=== PATIENT | male | born 1930 | race Caucasian/White ===

== ENCOUNTER 2016-09-12 13:05 | Inpatient (IN) | payer MEDICARE, OTHER ==
[2016-09-12] MEDS ORDERED: Sodium Chloride 0.9% 5 ML Syringe FLUSH PRN (13:23)
[2016-09-12] MEDS ORDERED: Acetaminophen 325 MG Tab PO ONE (13:23)
[2016-09-12] MEDS ORDERED: Sodium Chloride 0.9% 1,000 ML IV SCH (13:30)
--- NOTE | 2016-09-12 13:36 | EDM.PDOC ---
ED HPI GENERAL MEDICAL PROBLEM - General Chief Complaint: Fever Stated Complaint: FALL WITH HEAD INJURY Time Seen by Provider: 09/12/16 13:20 Source of Information: Reports: EMS, half-way records History Limitations: Reports: Altered mental status (OF CHRONIC NATURE) - History of Present Illness INITIAL COMMENTS - FREE TEXT/NARRATIVE: PER LONG-TERM AND EMS NOTES, PT FELL DURING NIGHT WHILE TRYING TO GET OUT OF WHEELCHAIR. MAY HAVE STRUCK BACK OF HEAD. PT SAID TO BE MORE CONFUSED THAN USUAL THIS AM AND PCP WAS CONTACTED. [facility] CONTACTED EMS FOR TRANSFER. [facility] NOTES SHOW HYPOTENSION YESTERDAY BUT DID NOT ADDRESSING IT. ALSO NO TREATMENT DOCUMENTED BY MT FOR FEVER OR URI SYMPTOMS THAT PT PRESENTED TO ER WITH. PT DSOMEWHAT CONFUSED BUT DENIES CP, GONZALEZ, NECK PAIN, OR ANY OTHER PAIN. Onset: gradual Location: Reports: head (possible head injury) Quality: Reports: Other (no pain elicited) Improves with: Reports: None Worsens with: Reports: None Associated Symptoms: Reports: confusion (of chronic nature), cough, fever/ chills. Denies: chest pain, nausea/vomiting - Related Data Allergies Allergy/AdvReac Type Severity Reaction Status Date / Time theophylline anhydrous Allergy Cannot Verified 04/28/16 19:36 [From [facility]] Remember Home Meds: Home Meds Aspirin [Halfprin] 81 mg PO DAILY 09/22/15 [History] Refresh Optive Sensitive 0.5-0.9% Ophth 1 drop EYEBOTH BID 09/24/15 [History] Bisacodyl [Dulcolax] 10 mg RECTAL DAILY PRN 12/28/15 [History] Docusate Sodium [Colace] 200 mg PO BEDTIME 12/28/15 [History] Magnesium Hydroxide [Milk of Magnesia] 30 ml PO ASDIRECTED PRN 12/28/15 [History ] Allopurinol [Zyloprim] 100 mg PO QAM 04/28/16 [History] Gabapentin [Neurontin] 100 mg PO BID 04/28/16 [History] Melatonin 9 mg PO BEDTIME 04/28/16 [History] Metolazone 2.5 mg PO ASDIRECTED 04/28/16 [History] Phenylephrine HCl [Sinus Decongestant] 10 mg PO Q4H PRN 04/28/16 [History] Polyethylene Glycol 3350 [Miralax] 17 gm PO QAM 04/28/16 [History] metFORMIN HCl [Metformin HCl ER] 500 mg PO QAM 04/28/16 [History] Albuterol [IMW: Ventolin HFA] 1 puff INH .TWICE DAILY PRN #18 gm 05/04/16 [Rx] Acetaminophen [Acetaminophen ER] 650 mg PO BID 09/12/16 [History] Albuterol Sulfate 1 ampule INH BID 09/12/16 [History] Furosemide [Lasix] 40 mg PO DAILY 09/12/16 [History] Levothyroxine Sodium [Synthroid] 137 mcg PO DAILY 09/12/16 [History] QUEtiapine Fumarate [Seroquel] 200 mg PO BID 09/12/16 [History] Past Medical History HEENT History: Reports: Cataract, Hard of hearing, Impaired vision Other HEENT History: READING GLASSES AND BILATERAL HEARING AIDS Cardiovascular History: Reports: Afib, High cholesterol, Hypertension Respiratory History: Reports: Asthma, COPD Gastrointestinal History: Reports: Chronic constipation Genitourinary History: Reports: BPH Musculoskeletal History: Reports: Gout, Osteoarthritis Neurological History: Reports: Parkinson's, TIA, Other (see below) Other Neuro History: Confusion Psychiatric History: Reports: Anxiety, Dementia, Depression, Hallucinations Endocrine/Metabolic History: Reports: Diabetes, type II, Hypothyroidism Oncologic (Cancer) History: Reports: Lymphoma - Past Surgical History HEENT Surgical History: Reports: Cataract surgery Cardiovascular Surgical History: Reports: None Respiratory Surgical History: Reports: None GI Surgical History: Reports: Colonoscopy, EGD, Hernia repair/other Male Surgical History: Reports: TURP-Transurethral resection of prostate Neurological Surgical History: Reports: Vertebroplasty Musculoskeletal Surgical History: Reports: Knee replacement Oncologic Surgical History: Reports: None Other Oncologic Surgeries/Procedures: 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 She also had renal failure. Sister with hypertension) Respiratory: Reports: None GI: Reports: None : Reports: Renal disease/insufficiency (Mother with renal failure--), Other (see below) OBGYN: Reports: None Musculoskeletal: Reports: Arthritis (Brother alive arthritis unknown) Neurological: Reports: None Psychiatric: Reports: None Endocrine/Metabolic: Reports: None Hematologic: Reports: None Immunologic: Reports: None Dermatologic: Reports: None Oncologic: Reports: Other (see below) (Father rectal cancer Brother still living prostate cancer) - Tobacco Use Smoking Status *Q: Never Smoker Years of Tobacco use: 45 Packs/Tins Daily: 2 Used Tobacco, but Quit: Yes Month Tobacco Last Used: 10 Second Hand Smoke Exposure: No - Caffeine Use Caffeine Use: Reports: None - Alcohol Use Days Per Week of Alcohol Use: 0 Number of Drinks Per Day: 5 Total Drinks Per Week: 0 - Recreational Drug Use Recreational Drug Use: No ED ROS GENERAL - Review of Systems Review Of Systems: ROS reveals no pertinent complaints other than HPI. Constitutional: Reports: fever HEENT: Reports: No symptoms Respiratory: Reports: cough Cardiovascular: Reports: No symptoms. Denies: Chest pain Endocrine: Reports: no symptoms GI/Abdominal: Reports: No symptoms : Reports: no symptoms Musculoskeletal: Reports: no symptoms Skin: Reports: no symptoms Neurological: Reports: confusion (OF CHRONIC NATURE) Psychiatric: Reports: Confusion Hematologic/Lymphatic: Reports: no symptoms Immunologic: Reports: no symptoms ED EXAM, GENERAL - Physical Exam Exam: See Below Exam Limited By: Altered mental status (OF CHRONIC NATURE) General Appearance: alert, WD/WN, no apparent distress Eye Exam: bilateral eye: normal inspection Ears: normal external exam, normal canal, normal TMs Nose: normal inspection, normal mucosa, no blood Throat/Mouth: Normal inspection, Normal lips, Normal oropharynx, No airway compromise Head: atraumatic, normocephalic, other (NO SIGNS OF TRAUMA) Respiratory/Chest: no respiratory distress, rhonchi (APICALLY) Cardiovascular: regular rate, rhythm, no murmur GI/Abdominal: normal bowel sounds, soft, non tender, no distention, no abnormal bruit, no mass Back Exam: normal inspection. No: CVA tenderness (L), CVA tenderness (R) Extremities: normal inspection, normal range of motion, non-tender, no pedal edema Neurological: confused, disoriented Psychiatric: normal affect, normal mood Skin Exam: Warm, Dry, Intact, Normal color, No rash Lymphatic: no adenopathy Course - Orders/Labs/Meds Orders: Active Orders 24 hr Category Date Time Status Peripheral IV Care [RC] . DIRECTED Care 09/12/16 13:25 Ordered Chest 1V Frontal [CR] Stat Exams 09/12/16 13:23 Ordered CBC WITH AUTO DIFF [HEME] Stat Lab 09/12/16 13:23 Ordered COMPREHENSIVE METABOLIC PN,CMP [CHEM] Stat Lab 09/12/16 13:23 Ordered CULTURE URINE [RM] Stat Lab 09/12/16 13:23 Uncollected INFLUENZA A+B AG SCREEN [RM] Stat Lab 09/12/16 13:23 Uncollected UA W/MICROSCOPIC [URIN] Stat Lab 09/12/16 13:23 Uncollected Acetaminophen [Tylenol] Med 09/12/16 13:23 Once 650 mg PO NOW ONE Sodium Chloride 0.9% [Normal Saline] 1,000 ml Med 09/12/16 13:30 Ordered IV .BOLUS Sodium Chloride 0.9% [Syrex Flush] Med 09/12/16 13:23 Ordered 5 ml FLUSH Q8HR PRN Peripheral IV Insertion Adult [OM.PC] Urgent Oth 09/12/16 13:23 Ordered - Re-Assessments/Exams Free Text/Narrative Re-Assessment/Exam: 09/12/16 15:19 PT AFEBRILE, NONTOXIC APPEARING, VSS. DISCUSSED CASE WITH NANCIE CRUZ FROM [facility]. WILL ADMIT AND FOLLOW Departure - Departure Time of Disposition: 15:20 Disposition: Admitted As Inpatient 66 Condition: fair Clinical Impression: Pneumonia Qualifiers: Pneumonia type: due to unspecified organism Laterality: right Lung location: lower lobe of lung Qualified Code(s): J18.1 - Lobar pneumonia, unspecified organism - My Orders Last 24 Hours: My Active Orders 09/12/16 13:23 Chest 1V Frontal [CR] Stat CBC WITH AUTO DIFF [HEME] Stat COMPREHENSIVE METABOLIC PN,CMP [CHEM] Stat CULTURE URINE [RM] Stat INFLUENZA A+B AG SCREEN [RM] Stat UA W/MICROSCOPIC [URIN] Stat Acetaminophen [Tylenol] 650 mg PO NOW ONE Sodium Chloride 0.9% [Syrex Flush] 5 ml FLUSH Q8HR PRN Peripheral IV Insertion Adult [OM.PC] Urgent 09/12/16 13:25 Peripheral IV Care [RC] . DIRECTED 09/12/16 13:30 Sodium Chloride 0.9% [Normal Saline] 1,000 ml IV .BOLUS - Assessment/Plan Last 24 Hours: My Active Orders 09/12/16 13:23 Chest 1V Frontal [CR] Stat CBC WITH AUTO DIFF [HEME] Stat COMPREHENSIVE METABOLIC PN,CMP [CHEM] Stat CULTURE URINE [RM] Stat INFLUENZA A+B AG SCREEN [RM] Stat UA W/MICROSCOPIC [URIN] Stat Acetaminophen [Tylenol] 650 mg PO NOW ONE Sodium Chloride 0.9% [Syrex Flush] 5 ml FLUSH Q8HR PRN Peripheral IV Insertion Adult [OM.PC] Urgent 09/12/16 13:25 Peripheral IV Care [RC] . DIRECTED 09/12/16 13:30 Sodium Chloride 0.9% [Normal Saline] 1,000 ml IV .BOLUS Assessment:: PNEUMONIA Plan: ADMIT INPATIENT
[2016-09-12] MEDS ORDERED: cefTRIAXone 1 GM Vial IVPUSH ONE (14:22)
[2016-09-12] MEDS ORDERED: Azithromycin 500 MG in Sodium Chloride 0.9% 250 ML IV ONE (14:22)
[2016-09-12] MEDS ORDERED: Bisacodyl 10 MG Supp RECTAL PRN (16:38)
[2016-09-12] MEDS ORDERED: PHENYLEPHRINE HCL 10 MG PO PRN (16:38)
[2016-09-12] MEDS ORDERED: Magnesium Hydroxide 400 MG/5 ML Susp 30 ML Cup PO PRN (16:38)
[2016-09-12] MEDS ORDERED: Albuterol HFA 18 Gm Inhaler INH PRN (16:38)
[2016-09-12] MEDS ORDERED: Polyethylene Glycol 3350 Powder 17 GM Packet PO SCH (16:45)
[2016-09-12] MEDS ORDERED: Furosemide 40 MG/4 ML VIAL IVPUSH ONE (17:04)
[2016-09-12] MEDS: Albuterol/Ipratropium 3.0-0.5 MG/3 ML Neb Soln NEB SCH ×2 (17:33→23:00)
--- NOTE | 2016-09-12 18:42 | HP ---
CHIEF COMPLAINT: Weakness for 3 weeks with recent fall. HISTORY OF PRESENT ILLNESS: This is an 86-year-old gentleman who lives at [facility] in [place], [place]. The son reports to me that the patient has been very weak and states that he had fallen from using his walker, and ever since then, he has been really weak and he has been using a wheelchair instead of the walker. He gets out of bed and just sits in the chair. He has just been more weak lately. He has had a productive cough. The patient has a 45-year history of smoking. He does not currently smoke. The nursing staff was worried today as the patient was having some low blood pressure readings and then his blood pressure returned to normal. He just was not looking himself according to the nursing staff, so he is brought to the emergency room for further evaluation and treatment at that time. PAST MEDICAL HISTORY: Patient has a past medical history of COPD; hypothyroidism; mood disorder with dementia; gout; CHF; peripheral neuropathy; hypertension; diabetes mellitus, type 2. MEDICATIONS: As patient is taking at the skilled nursing. He takes metformin extended release 500 mg daily. He has Refresh eye drops and uses as needed, Seroquel 200 mg twice a day, MiraLAX as needed, Zaroxolyn 2.5 mg daily, melatonin as needed at bedtime for sleep, milk of magnesia as needed for constipation, Synthroid 137 mcg daily, gabapentin 300 mg twice daily, Lasix 40 mg daily, Colace 200 mg at bedtime, Dulcolax suppository as needed, aspirin 81 mg daily, allopurinol 100 mg twice a day, albuterol inhaler (Ventolin) as needed, and Tylenol as needed. ALLERGIES: Patient is allergic to [place]dra-[place]. SOCIAL PERSONAL HISTORY: Patient is retired. Lives at [facility]. The patient has a 45-year history of smoking. Does not currently smoke or drink alcohol. The patient's son does live in [place]. REVIEW OF SYSTEMS: CONSTITUTIONAL: He does complain of weakness and fatigue. He denies any fever or chills. Denies any decrease in appetite. EYES: No recent visual changes. ENT: No sinus congestion or hoarseness. CARDIOVASCULAR: No chest pain or palpitations. RESPIRATORY: The patient states he has had this cough for a long time. He denies any shortness of breath. He denies any chest pain. GI: No vomiting, diarrhea or melena. : No dysuria or hematuria. MUSCULOSKELETAL: No new bone pain or joint swelling. INTEGUMENTARY: No rash or pruritus. NEUROLOGIC/PSYCHIATRIC: No recent headache or focal weakness. No depressive symptoms. ENDOCRINE: No heat or cold intolerances or polydipsia. HEMATOLOGIC/LYMPHATIC: No excessive bruising or lymph node swelling. ALLERGIC/IMMUNOLOGIC: No hives or recurrent infections. PHYSICAL EXAMINATION: GENERAL: This is an elderly white male, in no acute distress. VITAL SIGNS: Temperature is 101.8, weight is 207 pounds, pulse is 104, blood pressure is 104/55, respiratory rate 20, oxygen saturations are 94% on 2 L nasal cannula. HEENT: Head is normocephalic. EOMs are intact. Pupils are equal, round, and reactive to light and accommodation. Bilateral tympanic membranes are intact. Nose is clear. No pharyngeal erythema noted. NECK: Supple. No JVD. Trachea midline. LUNGS: Lung sounds are coarse throughout. Diminished at bilateral bases. CARDIAC: Regular rate and rhythm. The patient does have distant heart tones. ABDOMEN: Soft, nontender, and nondistended. Bowel sounds present x4. EXTREMITIES: No joint effusions noted. Full range of motion. The patient is weak on his feet. NEURO: Neurologically, he is grossly intact. DIAGNOSTIC: The patient's chest x-ray that was obtained in the emergency room when compared to a chest x-ray obtained on 05/04/2016, Radiology does have an impression that reads moderate right basilar infiltrate. Left lung is clear. No definite effusions. The patient's lab work that was obtained in the emergency room; CBC shows white count elevated at 12.9, hemoglobin 12.5, platelet count 136. The patient's chemistry panel shows sodium of 140, potassium 4.6, chloride 98, BUN 42, creatinine 1.36, GFR is 50. The patient's brain natriuretic peptide was elevated at 1123. The rest of the patient's chemistry panel is unremarkable. Urinalysis was unremarkable. IMPRESSION/PLAN: 1. Moderate right basilar infiltrate on x-ray. We are going to admit the patient with IV antibiotic therapy. He is going to get vancomycin pharmacy to dose IV daily along with azithromycin 500 mg IV daily, DuoNebs every 6 hours. 2. History of hypothyroidism. Continue with levothyroxine 137 mcg daily. 3. Mood disorder with history of dementia. Continue with Seroquel 200 mg twice daily. 4. History of gout. Continue with allopurinol 100 mg twice a day. 5. Congestive heart failure. Continue with Lasix 40 mg daily. The patient's brain natriuretic peptide was elevated at 1120. No IV fluids at this time. I will give a onetime dose of Lasix 40 mg IV push. Patient had received 500 ml IV in ER. 6. Peripheral neuropathy secondary to diabetes. Continue with gabapentin 300 mg twice a day. 7. Hypertension. Continue with Zaroxolyn 2.5 mg daily. 8. Diabetes mellitus, type 2. Continue with metformin extended release 500 mg daily along with aspirin 81 mg daily. OVERALL PLAN: The patient did receive blood cultures in the ER. He also needed a urine culture. Sputum culture will be obtained. We will continue patient on IV antibiotic therapy of vancomycin along with azithromycin, DuoNebs every 6 hours. Repeat lab work tomorrow morning. /[id number]/MODL MTDD
[2016-09-12] MEDS: Melatonin 3 MG Tab PO SCH (20:55)
[2016-09-12] MEDS: Docusate Sodium 100 MG Cap PO SCH (20:56)
[2016-09-12] MEDS: QUEtiapine 100 MG Tab PO SCH (20:56)
[2016-09-12] MEDS: Allopurinol 100 MG Tab PO SCH (20:57)
[2016-09-12] MEDS: Gabapentin 100 MG Cap PO SCH (20:57)
[2016-09-12] MEDS: Acetaminophen 650 MG Tab.ER PO SCH (20:57)
[2016-09-12] MEDS ORDERED: [UNRECOGNIZED DRUG - OTHER] EYEBOTH SCH (21:00)
[2016-09-13] MEDS: Albuterol/Ipratropium 3.0-0.5 MG/3 ML Neb Soln NEB SCH ×4 (06:35→22:37)
[2016-09-13] MEDS: Levothyroxine 112 MCG Tab PO SCH (06:36)
[2016-09-13] MEDS: Levothyroxine 25 MCG Tab PO SCH (06:36)
[2016-09-13] MEDS: Acetaminophen 650 MG Tab.ER PO SCH ×2 (08:06→20:50)
[2016-09-13] MEDS: Allopurinol 100 MG Tab PO SCH ×2 (08:06→20:49)
[2016-09-13] MEDS: metFORMIN 500 MG Tab.ER PO SCH (08:06)
[2016-09-13] MEDS: Furosemide 40 MG Tab PO SCH (08:06)
[2016-09-13] MEDS: QUEtiapine 100 MG Tab PO SCH ×2 (08:06→20:48)
[2016-09-13] MEDS: Aspirin 81 MG Tab.EC PO SCH (08:07)
[2016-09-13] MEDS: Gabapentin 100 MG Cap PO SCH ×2 (08:07→20:49)
[2016-09-13] MEDS ORDERED: Carboxymethylcellulose Sodium 0.5% Ophth Soln 15 ML Bottle EYERT SCH (10:30)
[2016-09-13] MEDS ORDERED: Levofloxacin/Dextrose 5%-Water 500 MG in Premix Bag 1 BAG IV SCH (10:45)
--- NOTE | 2016-09-13 12:33 | PN ---
09/13/2016 PATIENT NAME: RUDOLPH PANDA KEV SUBJECTIVE: This is an 86-year-old gentleman who was brought into the emergency room yesterday from [facility] in [place], [place]. Nursing staff had reported that the patient had fallen previously, and ever since then, he has been just not feeling well. They stated that he had some low blood pressure readings. The patient's son had reported that he fell about three weeks ago when he was using his walker, and ever since then, he has not used his walker, he has been using a wheelchair to get around. He has just been more lethargic and less energetic. The patient just complained of a cough for the last two years. The patient was brought to the emergency room for evaluation. At that time, he was found to have a moderate right lower lung pneumonia. White count was elevated. The patient was admitted to the hospital at that time. The patient states today, he is feeling better. He says he has been up to the bathroom. He ate his breakfast. He denied any chest pain. He says that he has had this cold for the last two years. When I asked him about his cough, the patient does have a wet-sounding cough. OBJECTIVE: VITAL SIGNS: Today, the patient's weight is 206 pounds, temperature is 98.3, pulse is 74, blood pressure is 99/59, respiratory rate is 24, the patient's oxygen saturation is 95% on 2 L nasal cannula. GENERAL: This is an elderly white male, in no acute distress. LUNGS: Lung sounds are coarse throughout lung south. HEART: Tones are distant. Regular rate and rhythm. No murmurs identified. ABDOMEN: Soft, nontender, and nondistended. Bowel sounds present x4. No pedal edema noted. LABORATORY DATA: The patient's lab work that was obtained today, the patient's CBC shows a white count elevated at 17.8, hemoglobin of 11.5, platelet count is 106, the patient's chemistry panel shows a BUN elevated at 44, creatinine is at 1.20. GFR is at 57, this is slightly improved from yesterday when it was 50. Yesterday, the patient's brain natriuretic peptide on admission was 1120. Urinalysis that was obtained yesterday was unremarkable except for just a few yeast and a trace of blood. No urinary symptoms. IMPRESSION AND PLAN: 1. Moderate right basilar infiltrate on x-ray/pneumonia. CBC shows white count continues to be elevated at 17.9. We will continue with vancomycin intravenously daily and Pharmacy to dose. I am going to stop the patient's azithromycin IV and start the patient on Levaquin 500 mg IV daily. We will continue with DuoNeb every six hours scheduled. I am going to start the patient on some guaifenesin 200 mg every six hours scheduled. The patient does have lots of coarse phlegm sounding lungs sounds. We will continue with oxygen per nasal cannula. We will repeat a CBC in the morning. 2. History of hypothyroidism. Plan: Continue with levothyroxine 137 mcg daily. 3. Mood disorder with history of dementia. Plan: Continue with Seroquel 200 mg twice a day. 4. History of gout. Plan: Continue with allopurinol 100 mg twice a day. 5. Congestive heart failure. Plan: Continue with Lasix 40 mg p.o. daily. The patient did get an extra dose of 40 mg IV yesterday. His brain natriuretic peptide yesterday was elevated at 1120. The patient did have good urine output. 6. Peripheral neuropathy secondary to diabetes. Continue with gabapentin 300 mg twice a day. 7. Hypertension. Continue with Zaroxolyn 2.5 mg daily. 8. Diabetes mellitus type 2. Plan: Continue with metformin extended release 500 mg daily along with aspirin 81 mg daily. /[id number]/MODL MTDD
[2016-09-13] MEDS ORDERED: Levofloxacin/Dextrose 5%-Water 100 ML IV ONE (12:51)
[2016-09-13] MEDS: guaiFENesin 100 MG/5 ML Soln 10 ML UD Cup PO SCH ×3 (12:55→22:41)
[2016-09-13] MEDS ORDERED: Azithromycin 500 MG in Sodium Chloride 0.9% 250 ML IV SCH (17:00)
[2016-09-13] MEDS: Docusate Sodium 100 MG Cap PO SCH (20:48)
[2016-09-13] MEDS: Melatonin 3 MG Tab PO SCH (20:49)
[2016-09-13] MEDS: Polyvinyl Alcohol 1.4% Ophth Soln 15 ML Bottle EYEBOTH SCH (20:51)
[2016-09-14] MEDS: Albuterol/Ipratropium 3.0-0.5 MG/3 ML Neb Soln NEB SCH ×4 (05:21→22:12)
[2016-09-14] MEDS: guaiFENesin 100 MG/5 ML Soln 10 ML UD Cup PO SCH ×4 (06:06→22:12)
[2016-09-14] MEDS: Levothyroxine 25 MCG Tab PO SCH (06:06)
[2016-09-14] MEDS: Levothyroxine 112 MCG Tab PO SCH (06:06)
[2016-09-14 07:57] LABS: CHLORIDE,CL 96 mmol/L (98-115); SODIUM,NA 137 mmol/L (136-145)
[2016-09-14] MEDS: Furosemide 40 MG Tab PO SCH (08:37)
[2016-09-14] MEDS: Enoxaparin 30 MG/0.3 ML Syringe SUBCUT SCH (08:37)
[2016-09-14] MEDS: Aspirin 81 MG Tab.EC PO SCH (08:37)
[2016-09-14] MEDS: Polyvinyl Alcohol 1.4% Ophth Soln 15 ML Bottle EYEBOTH SCH ×2 (08:37→21:10)
[2016-09-14] MEDS: metFORMIN 500 MG Tab.ER PO SCH (08:37)
[2016-09-14] MEDS: Allopurinol 100 MG Tab PO SCH ×2 (08:38→21:11)
[2016-09-14] MEDS: Acetaminophen 650 MG Tab.ER PO SCH ×2 (08:38→21:11)
[2016-09-14] MEDS: Gabapentin 300 MG Cap PO SCH ×2 (08:38→21:11)
[2016-09-14] MEDS: QUEtiapine 100 MG Tab PO SCH ×2 (08:38→21:11)
[2016-09-14] MEDS ORDERED: Bisacodyl 10 MG Supp RECTAL PRN (09:00)
[2016-09-14] MEDS: Polyethylene Glycol 3350 Powder 17 GM Packet PO SCH (10:19)
[2016-09-14] MEDS: Erythromycin Base 0.5% Ophth Oint 3.5 GM Tube EYEBOTH SCH ×2 (10:23→21:10)
[2016-09-14] MEDS: Levofloxacin/Dextrose 5%-Water 100 ML IV SCH (10:25)
[2016-09-14] MEDS: Levofloxacin/Dextrose 5%-Water 50 ML IV SCH (10:30)
--- NOTE | 2016-09-14 11:04 | PN ---
09/14/2016 PATIENT NAME: RUDOLPH PANDA CHIEF COMPLAINT: Overall feels better today and still has a cough. BRIEF HISTORY: This 86-year-old gentleman was admitted through the ED due to pneumonia, healthcare acquired. He is a resident of a long-term care center at [facility] in [place], [place]. The patient had noticed that he had fallen previously and overall, he had just not been feeling well. It was determined that he did have more of a cough, some gurgling, so he was admitted. He does have pneumonia. The patient's code status is a DNR. PHYSICAL EXAMINATION: VITAL SIGNS: This morning, blood pressure 103/62. The patient does run baseline slightly low to normal. Temperature is afebrile, 97.3, that is down from 101.8 on admission. Heart rate 88 and regular, respiratory rate 20, O2 sats 94% that is on 2 L. LUNGS: Some coarse, bibasilar, clear in the upper. Did have increasing dullness and is right basal. No CVA tenderness. CV: Regular rate and rhythm. EXTREMITIES: Good distal pulses. Patient had no edema. LABORATORY DATA: This morning, white count 32813, that is down from about 17.5 thousand from yesterday with a percentage of neutrophils almost corrected around 76,000 right now. Platelets low at 121,000. ANC approximately 8800, hemoglobin 12.5, hematocrit 38.4, RDW slightly high at 15. Sodium 137, potassium 41, BUN 37 with a creatinine of 1.14 with improving creatinine clearance. Glucose 111. He is not on metformin prior to admission. BNP 1120 that is on admission. Albumin normal. Total protein normal. Liver functions normal. IMPRESSION AND PLAN: 1. Pneumonia, healthcare acquired. Long-term care center, moderate right basilar infiltrate. We will add incentive spirometer. The patient is improving clinically. We will increase his Levaquin from 500-750 mg a day. Urine culture, no growth. Blood culture, no growth after one day. The patient appears well hydrated. He is taking good orals. 2. History of hypothyroidism. Continue with levothyroxine. 3. History of gout. He is on a renal dose allopurinol. 4. Congestive heart failure. 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 He has no edema at this time. BNP 1120. In reviewing his electronic medical record, I do not see the patient came into the hospital with an angiotensin-converting enzyme inhibitor likely due to slightly low blood pressure. 5. Peripheral neuropathy secondary to diabetes. He is on gabapentin. Apparently, his metformin has been discontinued. Blood sugars are within normal limits today. 6. History of hypertension. He has actually been slightly low, doubtful of sepsis. He does continue with thiazide diuretic, 2.5 mg twice daily. The patient is also on aspirin. Overall, the patient is clinically doing well. He is alert. He is oriented. He does have a history of mood disorder with history of dementia, Lewy-body dementia. This seems well controlled on Seroquel 200 mg twice a day. Likely, he can benefit from IV, increase in respiratory fluoroquinolone medication, well hydrated, and likely he can be discharged within a day or two. /[id number]/MODL
[2016-09-14] MEDS: Cetirizine 10 MG Tab PO SCH (12:40)
[2016-09-14] MEDS: Pseudoephedrine 30 MG Tab PO SCH (12:41)
[2016-09-14] MEDS ORDERED: Non-Formulary Medication 1 Each (Carboxymethylcellulose Sodium 1 DROP) EYEBOTH SCH (17:00)
[2016-09-14] MEDS ORDERED: ERYTHROMYCIN EYEBOTH SCH (21:00)
[2016-09-14] MEDS ORDERED: [UNRECOGNIZED DRUG - OTHER] EYEBOTH SCH (21:00)
[2016-09-14] MEDS: Melatonin 3 MG Tab PO SCH (21:10)
[2016-09-14] MEDS: Docusate Sodium 100 MG Cap PO SCH (21:10)
[2016-09-15] MEDS: Albuterol/Ipratropium 3.0-0.5 MG/3 ML Neb Soln NEB SCH ×5 (05:15→22:46)
[2016-09-15] MEDS: guaiFENesin 100 MG/5 ML Soln 10 ML UD Cup PO SCH ×5 (05:33→22:45)
[2016-09-15] MEDS: Levothyroxine 112 MCG Tab PO SCH (06:55)
[2016-09-15] MEDS: Levothyroxine 25 MCG Tab PO SCH (06:55)
[2016-09-15] MEDS: Furosemide 40 MG Tab PO SCH (08:59)
[2016-09-15] MEDS: Erythromycin Base 0.5% Ophth Oint 3.5 GM Tube EYEBOTH SCH ×2 (08:59→21:05)
[2016-09-15] MEDS: Aspirin 81 MG Tab.EC PO SCH (08:59)
[2016-09-15] MEDS ORDERED: PSEUDOEPHEDRINE PO SCH (09:00)
[2016-09-15] MEDS ORDERED: CETIRIZINE HCL PO SCH (09:00)
[2016-09-15] MEDS: Enoxaparin 30 MG/0.3 ML Syringe SUBCUT SCH (09:00)
[2016-09-15] MEDS: Gabapentin 300 MG Cap PO SCH ×2 (09:00→21:04)
[2016-09-15] MEDS: Polyvinyl Alcohol 1.4% Ophth Soln 15 ML Bottle EYEBOTH SCH ×2 (09:00→21:02)
[2016-09-15] MEDS: QUEtiapine 100 MG Tab PO SCH ×2 (09:02→21:04)
[2016-09-15] MEDS: Pseudoephedrine 30 MG Tab PO SCH (09:02)
[2016-09-15] MEDS: Allopurinol 100 MG Tab PO SCH ×2 (09:03→21:05)
[2016-09-15] MEDS: Acetaminophen 650 MG Tab.ER PO SCH ×2 (09:03→21:02)
[2016-09-15] MEDS: Cetirizine 10 MG Tab PO SCH (09:03)
--- NOTE | 2016-09-15 11:51 | PN ---
09/15/2016 PATIENT NAME: RUDOLPH PANDA KEV SUBJECTIVE: Overall the patient is improving. He does have some mucus production and a considerable cough, however that was present on admission. BRIEF HISTORY: This 86-year-old gentleman came to the ED. He is a resident of a long-term care center, diagnosed with pneumonia. He had also noticed a fall speaking with his son. The patient has been slightly weakened and so, he had fell previously. It was determined due to his cough and some gurgling that he came to the ED. He is a DNR. He was admitted for the healthcare acquired pneumonia. He was placed on IV antibiotics. The patient does have a history of severe pneumonia about two years ago, which he spent 3 weeks in acute care facility in [place], [place]. At that time, they did not expect him to live through that. They considered that an aspiration pneumonia. According to the son, he seems to get a pneumonia each year. However, this one seems pretty mild. The patient does have Lewy body dementia, which places him high risk for other illnesses. LABS: His white count was 88752 a couple of days ago, it is now normal at 9.5. Percentage neutrophils 78%, low percentage of lymphocytes and monos are high around 10%, ANC is 7500. Sodium 137, potassium 4.1, renal clearance is adequate greater than 60. Chest x-ray report does show moderate right basilar infiltrate. OBJECTIVE: VITAL SIGNS: This morning, temperature 97.1, blood pressure 121/72, respiratory rate 20, O2 sats are 96%. He is on 2 L. LUNGS: He does have some considerable rhonchus noted. Very good cough reflex. No use of accessory muscles. Oxygen saturations are adequate. CV: Regular rate and rhythm. No S3. EXTREMITIES: Good distal pulses. No edema. IMPRESSION/PLAN: 1. Pneumonia, healthcare acquired. He is on Levaquin and this was increased yesterday from 500-750 mg daily. He is using incentive spirometer. Blood cultures continue with no growth. Urine culture no growth. Negative influenza A and B. Gram stain is gram-positive cocci. Culture pending. He appears well hydrated. We are also giving him renal dosed, pharmacy dosing vancomycin. 2. History of gout. He is on allopurinol. 3. Congestive heart failure with reduced ejection fraction, diastolic. No edema. Well hydrated. BNP 1120. He is on Lasix and Zaroxolyn twice a week. 4. Peripheral neuropathy secondary to diabetes. He is on gabapentin. Blood glucose was 111. He is no longer on his metformin. 5. History of hypertension. His blood pressure is normal today, around 120 systolic. He is continuing on thiazide diuretic. He is on aspirin and is on loop diuretic for congestive heart failure. May consider WARREN inhibitor. Upon discharge, we will see how he does on his blood pressure. 6. Lewy body dementia. Seems well controlled on 200 mg twice daily of Seroquel. The patient is lucid. He does not have any hallucinations as previous admissions. OVERALL PLAN: Continue IV antibiotics. Good pulmonary toileting today. Good use of incentive spirometer. Encouraged coughing and deep breathing. Had discussion with son. About 50% chance the patient could go back tomorrow on orals, most likely would be possible discharge. We will see what his sputum culture shows. Right now, he is clinically improving. We will continue for acute care status. /[id number]/MODL
[2016-09-15] MEDS: Melatonin 3 MG Tab PO SCH (21:03)
[2016-09-15] MEDS: Docusate Sodium 100 MG Cap PO SCH (21:04)
[2016-09-16] MEDS: guaiFENesin 100 MG/5 ML Soln 10 ML UD Cup PO SCH ×4 (05:17→23:09)
[2016-09-16] MEDS: Albuterol/Ipratropium 3.0-0.5 MG/3 ML Neb Soln NEB SCH ×4 (05:29→23:09)
[2016-09-16] MEDS: Levothyroxine 25 MCG Tab PO SCH (06:03)
[2016-09-16] MEDS: Levothyroxine 112 MCG Tab PO SCH (06:04)
[2016-09-16] MEDS: Polyethylene Glycol 3350 Powder 17 GM Packet PO SCH (08:08)
[2016-09-16] MEDS: Erythromycin Base 0.5% Ophth Oint 3.5 GM Tube EYEBOTH SCH ×2 (08:08→21:25)
[2016-09-16] MEDS: Enoxaparin 30 MG/0.3 ML Syringe SUBCUT SCH (08:09)
[2016-09-16] MEDS: Aspirin 81 MG Tab.EC PO SCH (08:11)
[2016-09-16] MEDS: Furosemide 40 MG Tab PO SCH (08:11)
[2016-09-16] MEDS: Polyvinyl Alcohol 1.4% Ophth Soln 15 ML Bottle EYEBOTH SCH ×2 (08:11→21:26)
[2016-09-16] MEDS: Acetaminophen 650 MG Tab.ER PO SCH ×2 (08:12→21:26)
[2016-09-16] MEDS: Gabapentin 300 MG Cap PO SCH ×2 (08:12→21:26)
[2016-09-16] MEDS: QUEtiapine 100 MG Tab PO SCH ×2 (08:12→21:26)
[2016-09-16] MEDS: Cetirizine 10 MG Tab PO SCH (08:13)
[2016-09-16] MEDS: Allopurinol 100 MG Tab PO SCH ×2 (08:13→21:26)
[2016-09-16] MEDS: Pseudoephedrine 30 MG Tab PO SCH (08:15)
[2016-09-16] MEDS ORDERED: Metolazone 2.5 MG Tab PO SCH (09:00)
[2016-09-16] MEDS: Levofloxacin/Dextrose 5%-Water 100 ML IV SCH (11:31)
--- NOTE | 2016-09-16 12:14 | PN ---
09/16/2016 PATIENT NAME: RUDOLPH PANDA CHIEF COMPLAINT: Overall does feel better, less of a cough; however, he does have some ongoing mucus production. BRIEF HISTORY: This 86-year-old gentleman was admitted through the ED. He is a resident of a long-term care center and diagnosed with pneumonia. He also had been falling, more and more weakened. He is a DNR. He was admitted for a healthcare-acquired pneumonia, placed on IV antibiotics. He does have a history of severe aspiration pneumonia a couple of years ago in which he spent about 3 weeks in the hospital, that was a grave condition at that time; however, he had recovered from that. He appears to get pneumonia this time each year according to the son. He has been doing quite well on Levaquin; however, he does have worsening chest x-ray today which does not quite correlate with the clinical picture. Initial chest x-ray showed a moderate right basilar infiltrate. A repeat chest x-ray this morning does show ongoing moderate bibasilar infiltrates; however, increased on the right and a new infiltrate on the left. LABORATORY DATA: Labs this morning, white count 9.5, hemoglobin 12.4, hematocrit 38.4. Sodium 137, potassium 4.1. Extended neutrophils 78.6. MICROBIOLOGY REPORT: Urine culture, no growth. Influenza A and B negative. No growth on blood cultures. However, sputum culture showed normal sheri and yeast. PHYSICAL EXAMINATION: VITAL SIGNS: Temperature 96.7, blood pressure is slightly low today at 97/48, however, mean arterial pressure is 64, respiratory rate 14, and O2 sats 96% on 1 L. He is using his incentive spirometer and getting about 1300 mL, doing well on that. Intake and output, approximately 2300 in with 2650 out, negative 335. GENERAL: The patient is alert and oriented. He is quite pleasant. Still has ongoing mild cough. Dullness to his right basilar with some mild rhonchus; however, appeared to be improved from yesterday. CV: Regular rate and rhythm. No S3 sounds. No murmur. IMPRESSION AND PLAN: 1. Pneumonia, increased on the right and new on the left, not quite correlating to clinical picture. We will continue reassessing white count. We will continue him on Levaquin. I did increase it to 750 mL. We will continue with vancomycin. Good aggressive pulmonary toileting today. Keep in chair. Continue with the use of incentive spirometer. Monitor for sensitivity report that still has not returned. 2. History of gout, on allopurinol. 3. Congestive heart failure with reduced ejection fraction. He has no edema. He 335 mL of negative output. He is on [id number] Zaroxolyn along with Lasix. 4. Peripheral neuropathy secondary to diabetes, on gabapentin. Glucose stable. No longer on metformin. 5. History of hypertension. He is on thiazide diuretic; however, his blood pressure is little low today. He is also on a loop diuretic for congestive heart failure. Doubtful if we will be able to start WARREN inhibitor on him due to low blood pressure today. 6. Lewy body dementia. Seems to be well controlled. Seroquel 200 mg twice daily. He is very lucid. No hallucinations on this admission. OVERALL PLAN: We will continue IV antibiotics. We will wait for sputum sensitivity report. Chest x-ray does not correlate with clinical picture; however, we will increase our aggressiveness on pulmonary toileting today. I will get him walking around as much as possible. Likely, he could be discharged back to the [facility]. We will see what his CBC and his percent of neutrophils, and determine any reactive thrombocytosis tomorrow. Most likely, he could go back tomorrow on orals. We will see how he does today. /[id number]/MODL MTDD
[2016-09-16] MEDS: Levofloxacin/Dextrose 5%-Water 50 ML IV SCH (12:43)
[2016-09-16] MEDS: Melatonin 3 MG Tab PO SCH (21:25)
[2016-09-16] MEDS: Docusate Sodium 100 MG Cap PO SCH (21:26)
[2016-09-17] MEDS: guaiFENesin 100 MG/5 ML Soln 10 ML UD Cup PO SCH ×2 (05:41→11:40)
[2016-09-17] MEDS: Albuterol/Ipratropium 3.0-0.5 MG/3 ML Neb Soln NEB SCH ×2 (05:59→11:15)
[2016-09-17 06:14] VITALS: BP 102/69
[2016-09-17] MEDS: Levothyroxine 112 MCG Tab PO SCH (06:51)
[2016-09-17] MEDS: Levothyroxine 25 MCG Tab PO SCH (06:51)
[2016-09-17] MEDS: Erythromycin Base 0.5% Ophth Oint 3.5 GM Tube EYEBOTH SCH (08:12)
[2016-09-17] MEDS: Enoxaparin 30 MG/0.3 ML Syringe SUBCUT SCH (08:13)
[2016-09-17] MEDS: Furosemide 40 MG Tab PO SCH (08:13)
[2016-09-17] MEDS: Polyvinyl Alcohol 1.4% Ophth Soln 15 ML Bottle EYEBOTH SCH (08:13)
[2016-09-17] MEDS: Aspirin 81 MG Tab.EC PO SCH (08:13)
[2016-09-17] MEDS: Gabapentin 300 MG Cap PO SCH (08:14)
[2016-09-17] MEDS: QUEtiapine 100 MG Tab PO SCH (08:14)
[2016-09-17] MEDS: Acetaminophen 650 MG Tab.ER PO SCH (08:14)
[2016-09-17] MEDS: Pseudoephedrine 30 MG Tab PO SCH (08:14)
[2016-09-17] MEDS: Cetirizine 10 MG Tab PO SCH (08:15)
[2016-09-17] MEDS: Allopurinol 100 MG Tab PO SCH (08:15)
[2016-09-17 09:29] LABS: CHLORIDE,CL 91 mmol/L (98-115); SODIUM,NA 133 mmol/L (136-145)
--- NOTE | 2016-09-17 15:58 | DISCH ---
FINAL DIAGNOSES: 1. Pneumonia, healthcare associated. Clinically improved. 2. History of gout, on Renal-dosed allopurinol. 3. Congestive heart failure with reduced ejection fraction. He is on loop diuretic along with twice a week Zaroxolyn. 4. Peripheral neuropathy secondary to diabetes. Stable on gabapentin. He is no longer on metformin. Glucose is stable. 5. History of hypertension. He is on thiazide diuretic, also on loop diuretic. I did not start WARREN inhibitor due to low blood pressure. 6. Lewy body dementia, it seems very well controlled on Seroquel 200 mg twice daily. HISTORY: This 86-year-old gentleman was admitted through the emergency department. He is a resident of a long-term care center, was diagnosed with pneumonia, also he had been falling in more and more weakness. He is a DNR. He was admitted for healthcare acquired pneumonia. He was placed on IV antibiotics. He does have a history of severe aspiration pneumonia a couple of years ago, in which he spent about 3 weeks in the hospital. At that time, according to his son, they gave him a grave condition. They did not think he would survive the aspiration pneumonia. However, he did quite well. He did recover from that. Son states he does appear to get pneumonia each time around this year. He was admitted into inpatient stay. HOSPITAL COURSE: Hospital course went well. His initial chest x-ray showed moderate right basilar infiltrate. A repeat chest x-ray did show ongoing moderate bibasilar infiltrates. However, it did show an increase on the right and a new infiltrate on the left. However, his chest x-rays did not correlate with any of his clinical picture or labs. LABS: On admission, white count 13,000, it did increase to about 18,000. On discharge, it was 9. Percent of neutrophils peaked at 91%. On discharge, it was 79% with an elevation of his monocytes around 9.3%. Sodium 133, potassium 4.0, BUN and creatinine were normalizing on discharge. BUN 30, creatinine 1.11, estimated drug creatinine clearance about 49, calcium 9.5. AST, alkaline phosphatase and albumin, normal. He was initially placed on azithromycin through the ED, that was discontinued. We added levofloxacin. I did increase it to 750 mg on day #2. Increased his use of incentive spirometer. Coughing and deep breathing. He did very good pulmonary toileting. He was pleasant. He never became septic. Vital signs remained quite stable, although he did run a low blood pressure at times, 102/69. O2 sats on 1 L were 94%. With his back up in lab, microbiology report shows no growth on urine culture. Negative influenza A. Negative influenza B. However, his sputum culture did show normal sheri and yeast. PHYSICAL EXAM ON DISCHARGE: LUNGS: Considerable improvement, some mild rhonchus only. CV: Regular rate and rhythm. No S3. EXTREMITIES: Good distal pulses with no edema. VITALS: He was oxygenating around 94% to 96%. DISCHARGE MEDICATIONS: Levaquin 750 mg p.o. every 48 hours x4 doses (newly added). This will start September 18, 2016. The patient can continue on all other home medications. Immunization status: The patient had a pneumococcal vaccination 23 at age 64. Pneumococcal repeat 23 at age 77, and then a PCV 13 at age 84. DISPOSITION: The [facility] to [facility]. He will continue with p.o. antibiotics. Clinically, he has made much improvement despite recent results of chest x-ray. He can continue with incentive spirometer, aggressive pulmonary toileting. Report any fever, worsening cough, or any shortness of breath. The patient will be followed up in 1 week with the [facility] provider. MEDICAL DECISION MAKIN minutes were spent on discharge planning, process, working with social work lecturer and Pharmacy consultation, and medications. /[id number]/MODL
== END 2016-09-17 11:50 | DRG 194 ==
LOC: KA.ED 13:05 → KA.MS 15:30
PROVIDERS: ADMIT Physician Assistant; ATTEND Physician Assistant
DX: J18.9 Pneumonia, unspecified organism (principal); S09.90XA Unspecified injury of head, initial encounter; C85.90 Non-Hodgkin lymphoma, unspecified, unspecified site; I48.91 Unspecified atrial fibrillation; E78.00 Pure hypercholesterolemia, unspecified; I10 Essential (primary) hypertension; I11.0 Hypertensive heart disease with heart failure; I50.9 Heart failure, unspecified; J44.9 Chronic obstructive pulmonary disease, unspecified; J45.909 Unspecified asthma, uncomplicated; K59.00 Constipation, unspecified; E03.9 Hypothyroidism, unspecified; F39 Unspecified mood [affective] disorder; N40.0 Benign prostatic hyperplasia without lower urinary tract symptoms; Z86.73 Personal history of transient ischemic attack (TIA), and cerebral infarction without residual deficits; E11.9 Type 2 diabetes mellitus without complications; M19.90 Unspecified osteoarthritis, unspecified site; M10.9 Gout, unspecified; G20 Parkinson's disease; E11.42 Type 2 diabetes mellitus with diabetic polyneuropathy; Z79.84 Long term (current) use of oral hypoglycemic drugs; F32.9 Major depressive disorder, single episode, unspecified; F41.9 Anxiety disorder, unspecified; Z96.659 Presence of unspecified artificial knee joint; H91.93 Unspecified hearing loss, bilateral; Z79.01 Long term (current) use of anticoagulants; Z79.82 Long term (current) use of aspirin; Z79.899 Other long term (current) drug therapy; Z87.891 Personal history of nicotine dependence; Z88.8 Allergy status to other drugs, medicaments and biological substances; W19.XXXA Unspecified fall, initial encounter; G31.83 Neurocognitive disorder with Lewy bodies; F02.80 Dementia in other diseases classified elsewhere, unspecified severity, without behavioral disturbance, psychotic disturbance, mood disturbance, and anxiety
CPT/HCPCS: 36415; 71010; 71020; 80048; 80053; 80202; 81001; 83880; 85025; 87040; 87070; 87077; 87086; 87205; 87804; 94640; 96361; 96365; 96375; 99285; A9270-GY; J0456; J0696; J1650; J1940; J1956; J3370; J7030; J7050